=== PATIENT | female | born 1990 | race Caucasian/White ===

== ENCOUNTER 2018-10-07 08:41 | Day surgery (SDC) | payer OTHER ==
[~2018-10-07 08:41] MED LIST: Acetaminophen TAB* 325 MG PO ONE; Gabapentin CAP(*) 300 MG PO ONE; Lactated Ringers 1000 ML Bag* 1,000 ML IV SCH
[2018-10-07] MEDS ORDERED: Gabapentin CAP(*) 300 MG ONE (08:59)
[2018-10-07] MEDS ORDERED: Acetaminophen TAB* 325 MG ONE (08:59)
[2018-10-07] MEDS ORDERED: Buffered Lidocaine 1% SYRIN* 1 ML/SYRINGE INTRADERM ONE (09:00)
[2018-10-07] MEDS ORDERED: ceFAZolin 2 GM in NS PREMIX(*) 2 GM/100 ML BAG IVPB ONE (09:00)
[2018-10-07] MEDS: Buffered Lidocaine 1% SYRIN* 1 ML/SYRINGE INTRADERM ONE ×2 (09:12→09:29)
[2018-10-07] MEDS ORDERED: Midazolam* 1 MG/ML 2 ML VIAL (2 MG) ONE (10:03)
[2018-10-07] MEDS ORDERED: fentaNYL* 50 MCG/ML 2 ML VIAL (100 MCG VIAL) ONE ×4 (10:03→13:28)
[2018-10-07] MEDS ORDERED: Famotidine IV* 10 MG/ML 2 ML (20 mg) ONE (10:25)
[2018-10-07] MEDS ORDERED: Bupivacaine 0.25% W/EPI* 10 ML SDV ONE (10:26)
[2018-10-07] MEDS ORDERED: Lidocaine 2% PF * 5 ML VIAL ONE (10:41)
[2018-10-07] MEDS ORDERED: Ketorolac INJ* 30 MG/ML 1 ML VIAL ONE (10:45)
[2018-10-07] MEDS ORDERED: Propofol* 10 MG/ML 20 ML BTL ONE (10:45)
[2018-10-07] MEDS ORDERED: Dexamethasone IV* 4 MG/ML 1 ML (4 MG) ONE (10:45)
[2018-10-07] MEDS ORDERED: Ondansetron INJ* 2 MG/ML VIAL ONE (10:45)
[2018-10-07] MEDS ORDERED: Succinylcholine* 20 MG/ML 10 ML VIAL ONE (10:45)
[2018-10-07] MEDS ORDERED: Cisatracurium* 2 MG/ML MDV 5 ML ONE (10:46)
[2018-10-07] MEDS ORDERED: DiMENhydriNATE IV* 50 MG/ML VIAL IV PUSH PRN (12:04)
[2018-10-07] MEDS ORDERED: Naloxone* 0.4 MG/ML 1 ML VIAL IV PRN (12:04)
[2018-10-07] MEDS ORDERED: Ondansetron INJ* 2 MG/ML VIAL IV PRN (12:04)
[2018-10-07] MEDS ORDERED: diPHENhydraMINE IV* 50 MG/ML 1 ml VIAL (BENADRYL) IV PRN (12:04)
[2018-10-07] MEDS ORDERED: HYDROcodone/ACETAMIN 5-325 MG* 1 TAB PO PRN ×2 (12:04)
[2018-10-07] MEDS ORDERED: Meperidine Ampule* 100 MG/2 ML AMPUL IV SLOW PU PRN (12:05)
--- NOTE | 2018-10-07 12:11 | BRIEFOPN ---
Brief Operative Note - Surgery Procedures: OPERATIVE REPORT Pre-op: Cholelithiasis, right upper abdominal pain Post-Op: Same Procedure:Laparoscopic cholecystectomy Surgeon: MD Sunil Asst: Ziggy Lynne MD Anes: general with local , Dr. Cohen IVF:1 liter of crystalloid EBL:min Specimen: gallbladder Drain: None Wound: 2 Findings: Gallstones, no acute inflammation To PACU
[2018-10-07] MEDS ORDERED: DiMENhydriNATE IV* 50 MG/ML VIAL ONE (12:48)
[2018-10-07] MEDS: fentaNYL* 50 MCG/ML 2 ML VIAL (100 MCG VIAL) IV PRN ×2 (12:49→13:12)
--- NOTE | 2018-10-07 13:57 | OP ---
CC: Dr. Alexis Hamm * DATE OF OPERATION: 10/07/18 - SDS DATE OF : 89 SURGEON: Bahman Barber MD BUSINESS MANAGEMENT ASSOCIATE: LIZ Marley ANESTHESIOLOGIST: Dr. Cohen. ANESTHESIA: General with local. PRE-OP DIAGNOSIS: Cholelithiasis and right upper quadrant abdominal pain. POST-OP DIAGNOSIS: Cholelithiasis and right upper quadrant abdominal pain. OPERATIVE PROCEDURE: Laparoscopic cholecystectomy. ESTIMATED BLOOD LOSS: Minimal. IV FLUIDS: 1 L of crystalloids. SPECIMENS: Gallbladder. DRAINS: None. WOUND CLASSIFICATION: 2. FINDINGS: The patient had a gallbladder full of gallstones and 1 large 2.5 to 3 cm stone noted. There was no evidence of acute inflammation. The liver appeared to be normal. DESCRIPTION OF PROCEDURE: Written and informed consent was obtained, the abdomen was marked with indelible ink and preoperative antibiotics were administered. The patient was taken to the operating room, placed in the supine position where sequential compression devices and a warming blanket were applied. General anesthesia was administered. The abdomen was prepped and draped in the usual sterile fashion. Time-out verification was completed. Initially I infiltrated 1% lidocaine. In the left upper quadrant of the abdominal wall a small 5 mm incision was made in the transverse orientation. I attempted to enter the abdominal cavity using the 5 mm Optiview camera under direct vision; however, I had difficulty traversing through the abdominal musculature and this was aborted. Next, lidocaine was infiltrated just below the umbilicus. In the midline, a vertical incision was made in the umbilical fold. The peritoneal cavity was entered under direct vision and a 5 mm port was then inserted. Under direct vision an 11 mm epigastric port and two 5-mm ports were placed on the right side of the abdominal wall. Gallbladder was identified. It was somewhat distended, but it appeared to be without evidence of acute or chronic inflammation. The liver was unremarkable. The gallbladder was grasped and elevated up over the liver bed. The peritoneum along the medial and lateral aspect of the infundibulum was then divided using electrocautery to expose the cystic duct and artery as they entered the gallbladder. These structures were dissected clearly, and I took a considerable portion of the inferior part of the gallbladder off the liver bed using the critical view technique to assure myself of these structures. The cyst duct was not dilated. Both the cystic duct and artery were doubly clipped and divided. The gallbladder was then removed from the liver bed using cautery and placed in an EndoCatch bag. The liver bed was visualized. There was no evidence of bleeding. All clips were in good position. No evidence of bile leak or other abnormality in the right upper quadrant. The gallbladder was then removed through the epigastric port. It was necessary to make the skin incision slightly larger as well as stretch the muscle to remove a gallbladder that was full of gallbladder stones and sludge as well as one large gallstone. The 11-mm epigastric port was then replaced and under direct vision 5 mm ports were removed. There was no abdominal wall bleeding. The epigastric fascia overlying the rectus muscle was closed with several interrupted 0-Vicryl suture. The skin at all five incisions was approximated with subcuticular 4-0 Vicryl suture. Steri-Strips were applied. The patient tolerated the procedure well and was taken to the recovery room in stable condition. [id number] #: [id number] MTDD
[2018-10-07 14:23] VITALS: BP 122/73
== END 2018-10-07 14:35 | disposition home or self-care (01) ==
LOC: OR 08:41
PROVIDERS: ATTEND Surgery
DX: K80.10 Calculus of gallbladder with chronic cholecystitis without obstruction (principal); J30.2 Other seasonal allergic rhinitis; F41.9 Anxiety disorder, unspecified
CPT/HCPCS: 81025; 88304; A9270-GY; J0330; J0690; J1100; J1240; J1885; J2250; J2405; J2704; J3010